=== PATIENT | male | born 1990 | race African-American/Black ===

== ENCOUNTER 2021-01-13 14:10 | Emergency (ER) | payer SELFPAY ==
--- NOTE | 2021-01-13 14:47 | EDM.PDOC ---
ED HPI GENERAL MEDICAL PROBLEM - General Chief Complaint: Skin Complaint Stated Complaint: SKIN COMPLAINT\\FACE Time Seen by Provider: 01/13/21 14:20 Source of Information: Reports: Patient, RN Notes Reviewed History Limitations: Reports: No Limitations - History of Present Illness INITIAL COMMENTS - FREE TEXT/NARRATIVE: Patient is a 30 year old male presenting to the ER with c/o a "sore" to his left medial eyebrow. He reports that 1 week ago, the area appeared as a red and swollen bump. His girlfriend attempted to pop it, but nothing came out. He states that the next morning he woke up and had swelling his face, but that resolved later the same day. He feels that overall, the lesion has improved, but that his girlfriend made him come in because there was a bump beneath it. He denies any fever or chills. - Related Data Allergies Allergy/AdvReac Type Severity Reaction Status Date / Time No Known Allergies Allergy Verified 01/13/21 14:24 Home Meds: Home Meds Doxycycline [Vibramycin] 100 mg PO BID 5 Days #10 tab 01/13/21 [Rx] Social & Family History - Family History Family Medical History: No Pertinent Family History - Tobacco Use Tobacco Use Status *Q: Current Every Day Tobacco User Years of Tobacco use: 5 Packs/Tins Daily: 0.3 - Caffeine Use Caffeine Use: Reports: None - Recreational Drug Use Recreational Drug Use: No ED ROS GENERAL - Review of Systems Review Of Systems: Comprehensive ROS is negative, except as noted in HPI. ED EXAM, SKIN/RASH Exam: See Below General Appearance: Alert, WD/WN, No Apparent Distress Respiratory/Chest: No Respiratory Distress, Lungs Clear, Normal Breath Sounds, No Accessory Muscle Use, Chest Non-Tender Cardiovascular: Normal Peripheral Pulses, Regular Rate, Rhythm, No Edema, No Gallop, No JVD, No Murmur, No Rub Neurological: Alert, Oriented, CN II-XII Intact, Normal Cognition, Normal Gait, Normal Reflexes, No Motor/Sensory Deficits Psychiatric: Normal Affect, Normal Mood Skin: Other (1 cm circular, darkened area with a small reddened open area at the center. small nodule palpable below the surface. No drainage. No surrounding errythema or edema. ) Course - Vital Signs Last Recorded V/S: Last Vital Signs Temp 99.3 F 01/13/21 14:20 Pulse 71 01/13/21 14:20 Resp 18 01/13/21 14:20 BP 160/101 H 01/13/21 14:20 Pulse Ox 100 01/13/21 14:20 - Re-Assessments/Exams Free Text/Narrative Re-Assessment/Exam: Patient is a 30 year old male presenting to the ER for evaluation of a "sore" medial to his left eyebrow. On exam, pt has a 1cm area of what appears to be postinflammatory hyperpigmentation with an open area of redness at the center. There is not drainage or surrounding errythema. I suspect that this is a papulopustular acne that has become further inflamed from the trying to pop it. I will treat with a short course of doxycycline. Discharge instructions as documented. Departure - Departure Time of Disposition: 14:51 Disposition: Home, Self-Care 01 Condition: Good Clinical Impression: Acne-like skin bumps - Discharge Information *PRESCRIPTION DRUG MONITORING PROGRAM REVIEWED*: No *COPY OF PRESCRIPTION DRUG MONITORING REPORT IN PATIENT ADRIANNA: No Prescriptions: Doxycycline [Vibramycin] 100 mg PO BID 5 Days #10 tab Instructions: Acne, [id number] Referrals: PCP,None [Primary Care Provider] - Forms: ED Department Discharge Additional Instructions: You were seen in the emergency department today for evaluation of a sore to your inner left eyebrow. This was likely a deep ance pustule that became further inflamed by trying to pop it. You have been started on an antibiotic, doxycycline. Take this medication as prescribed. Avoid picking at the area. If symptoms do not improve after completion of the antibiotic, recommend follow- up in the clinic. Return to ER as needed. Sepsis Event Note (ED) - Evaluation Sepsis Screening Result: No Definite Risk
== END 2021-01-13 15:03 | disposition home or self-care (01) ==
LOC: JD.ED 14:10
DX: L70.9 Acne, unspecified (principal); Z72.0 Tobacco use
CPT/HCPCS: 99282; 99283

== ENCOUNTER 2021-03-13 09:08 | Emergency (ER) | payer SELFPAY | END 2021-03-13 10:05 | LOC: JD.ED 09:08 | DX: S91.311A Laceration without foreign body, right foot, initial encounter (principal); Z53.21 Procedure and treatment not carried out due to patient leaving prior to being seen by health care provider ==